=== PATIENT | female | born 1980 | race Native Hawaiian/Other Pacific Islander ===

== ENCOUNTER 2019-03-12 08:20 | Emergency (ER) | payer OTHER ==
[~2019-03-12] VITALS: Ht 167.6 cm; Wt 154.2 kg
[2019-03-12] MEDS ORDERED: LISI20TA11 PO (08:46)
[2019-03-12] MEDS ORDERED: OMEP40CA PO (08:46)
[2019-03-12] MEDS ORDERED: TRAZODONE HYDR150 MG PO (08:47)
[2019-03-12] MEDS ORDERED: SERT100T PO (08:47)
[2019-03-12] MEDS ORDERED: CLON1TAB18 PO (08:48)
[2019-03-12] MEDS ORDERED: ALBU0.5N13 INH (08:49)
[2019-03-12 09:48] LABS: PLATELET COUNT 202 K/uL (152-353)
[2019-03-12 10:03] LABS: SODIUM 139 mmol/L (136-145)
[2019-03-12 11:37] VITALS: TEMP 99
[2019-03-12 13:23] VITALS: BP 137/65
== END 2019-03-12 13:23 | disposition home or self-care (01) ==
LOC: ED 08:20
PROVIDERS: Emergency Medicine
DX: J20.9 Acute bronchitis, unspecified (principal)
CPT/HCPCS: 80053; 82550; 82553; 84484; 85027; 85379; 87502; 87651; 93005; 94664; 96365; 96372; 96375; 99284; J0696; J1885; J2930; Q9963

== ENCOUNTER 2019-04-07 09:47 | Outpatient (CLI) | payer OTHER ==
[~2019-04-07 09:47] MED LIST: ALBU0.5N13 INH; CLON1TAB18 PO; LISI20TA11 PO; OMEP40CA PO; SERT100T PO; TRAZODONE HYDR150 MG PO
== END 2019-04-07 09:49 | disposition short-term general hospital (02) ==
LOC: AMB 09:47
DX: R11.2 Nausea with vomiting, unspecified (principal); R42 Dizziness and giddiness; R07.9 Chest pain, unspecified
CPT/HCPCS: A0425; A0427

== ENCOUNTER 2019-04-07 09:55 | Emergency (ER) | payer OTHER ==
[~2019-04-07] VITALS: Ht 157.5 cm; Wt 59.0 kg
[2019-04-07 10:23] LABS: PLATELET COUNT 224 K/uL (152-353)
[2019-04-07 10:40] LABS: POTASSIUM 3.2 mmol/L (3.6-5.2)
[2019-04-07 12:00] VITALS: TEMP 97.8
[2019-04-07 13:50] VITALS: BP 118/79
== END 2019-04-07 14:01 | disposition home or self-care (01) ==
LOC: ED 09:55
PROVIDERS: Student in an Organized Health Care Education/Training Program
DX: R11.10 Vomiting, unspecified (principal); R07.89 Other chest pain; E87.6 Hypokalemia; E83.42 Hypomagnesemia
CPT/HCPCS: 80053; 81000; 81025; 83690; 83735; 84484; 85027; 93005; 96360; 96361; 96365; 96375; 96376; 99284; J1885; J2405; J3475

== ENCOUNTER 2019-04-07 14:07 | Outpatient (CLI) | payer OTHER | END 2019-04-07 22:51 | disposition home or self-care (01) | LOC: RAD 14:07 | DX: M25.571 Pain in right ankle and joints of right foot (principal) ==